=== PATIENT | female | born 1965 | race Caucasian/White ===

== ENCOUNTER → 2017-07-19 | Outpatient (CLI) | payer OTHER ==
[~2017-07-19] MED LIST: AUGMENTIN 875875 MG PO; FLAGYL500 M1 PO; HYDROCODONE-AP1 EAC6 PO; SENNA S TABLET1 EACH PO; ZYRTEC10 MG PO
== END ==
LOC: PUL 08:37
DX: R06.02 Shortness of breath (principal)

== ENCOUNTER 2018-01-15 16:46 | Emergency (ER) | payer OTHER ==
[~2018-01-15] VITALS: Ht 154.9 cm; Wt 68.0 kg
[2018-01-15] MEDS ORDERED: TOPROL XL25 MG PO (16:59)
[2018-01-15] MEDS ORDERED: LIPITOR10 MG PO (16:59)
[2018-01-15] MEDS ORDERED: METHIMAZOLE5 MG PO (17:00)
[2018-01-15] MEDS ORDERED: NORCO 5-325 TA1 EACH PO (17:35)
[2018-01-15] MEDS ORDERED: KEFLEX500 M1 PO (17:35)
[2018-01-15 18:16] VITALS: BP 146/81
== END 2018-01-15 18:17 | disposition home or self-care (01) ==
LOC: ER 16:46
DX: S68.113A Complete traumatic metacarpophalangeal amputation of left middle finger, initial encounter (principal); F17.210 Nicotine dependence, cigarettes, uncomplicated; E78.5 Hyperlipidemia, unspecified; E05.00 Thyrotoxicosis with diffuse goiter without thyrotoxic crisis or storm; Z90.710 Acquired absence of both cervix and uterus; Z88.1 Allergy status to other antibiotic agents; W23.1XXA Caught, crushed, jammed, or pinched between stationary objects, initial encounter; Y92.89 Other specified places as the place of occurrence of the external cause; Y93.89 Activity, other specified; Y99.8 Other external cause status

== ENCOUNTER 2018-01-15 19:21 | Emergency (ER) | payer OTHER ==
[~2018-01-15] VITALS: Ht 154.9 cm; Wt 68.0 kg
[~2018-01-15 19:21] MED LIST changes: +KEFLEX500 M1 PO; +LIPITOR10 MG PO; +METHIMAZOLE5 MG PO; +NORCO 5-325 TA1 EACH PO; +TOPROL XL25 MG PO
[2018-01-15 20:15] VITALS: BP 137/99
== END 2018-01-15 22:08 | disposition home or self-care (01) ==
LOC: ER 19:21
DX: S68.113A Complete traumatic metacarpophalangeal amputation of left middle finger, initial encounter (principal); F17.210 Nicotine dependence, cigarettes, uncomplicated; Z88.1 Allergy status to other antibiotic agents; Z90.710 Acquired absence of both cervix and uterus; W23.1XXA Caught, crushed, jammed, or pinched between stationary objects, initial encounter; Y92.89 Other specified places as the place of occurrence of the external cause; Y93.89 Activity, other specified; Y99.8 Other external cause status